=== PATIENT | female | born 1970 | race Caucasian/White ===

== ENCOUNTER 2017-12-07 07:56 | Emergency (ER) | payer OTHER | END 2017-12-07 08:58 | disposition home or self-care (01) | LOC: FTE 07:56 | DX: K62.89 Other specified diseases of anus and rectum (principal) | CPT/HCPCS: 99283; Z7502 ==

== ENCOUNTER 2018-05-30 11:23 | Day surgery (SDC) | payer OTHER ==
[~2018-05-30 11:23] MED LIST: SEVOFLURANE 15 MIN
[2018-05-30] MEDS ORDERED: DEXAMETHASONE 4 MG/ML 1 ML INJ (14:11)
[2018-05-30] MEDS ORDERED: ONDANSETRON 4 MG INJ (14:11)
[2018-05-30] MEDS ORDERED: PROPOFOL 20 ML (14:11)
[2018-05-30] MEDS ORDERED: PHENYLephrine (100 MCG/ML) 10ML SYG (14:11)
[2018-05-30] MEDS ORDERED: LIDOCAINE 100 MG SYRINGE (14:11)
[2018-05-30] MEDS ORDERED: MIDAZOLAM 1 MG/ML 2 ML INJ (14:16)
[2018-05-30] MEDS ORDERED: FENTAnyl 50 MCG/ML VIAL (14:52)
[2018-05-30] MEDS ORDERED: hydrALAzine 20 MG INJ IV (15:00)
[2018-05-30] MEDS ORDERED: ONDANSETRON 4 MG INJ IV (15:00)
[2018-05-30] MEDS ORDERED: FENTAnyl 50 MCG/ML VIAL IV ×2 (15:00)
[2018-05-30] MEDS ORDERED: LABETALOL HCL 20MG INJ IV (15:00)
[2018-05-30] MEDS ORDERED: MEPERIDINE 25 MG INJ IV (15:00)
[2018-05-30] MEDS ORDERED: METOCLOPRAMIDE 10 MG INJ IV (15:00)
[2018-05-30] MEDS ORDERED: HYDROmorphONE 1 MG/5 ML IV SYRINGE IV ×2 (15:00)
[2018-05-30] MEDS ORDERED: ACETAMINOPHEN 325 MG TAB PO (15:30)
== END 2018-05-30 17:06 | disposition home or self-care (01) ==
LOC: SDS 11:23
DX: N72 Inflammatory disease of cervix uteri (principal); N92.0 Excessive and frequent menstruation with regular cycle; E78.5 Hyperlipidemia, unspecified; L85.9 Epidermal thickening, unspecified; E78.00 Pure hypercholesterolemia, unspecified; K21.9 Gastro-esophageal reflux disease without esophagitis
CPT/HCPCS: 58558; 84702; 86850; 86900; 86901; 88305

== ENCOUNTER 2018-07-04 06:53 | Day surgery (SDC) | payer OTHER ==
[2018-07-04] MEDS ORDERED: MIDAZOLAM 1 MG/ML 2 ML INJ ×3 (09:08)
[2018-07-04] MEDS ORDERED: FENTAnyl 50 MCG/ML VIAL (09:08)
== END 2018-07-04 15:13 | disposition home or self-care (01) ==
LOC: GIL 06:53
DX: K64.4 Residual hemorrhoidal skin tags (principal); K64.8 Other hemorrhoids
CPT/HCPCS: 45378; 84703